=== PATIENT | female | born 1980 | race Caucasian/White ===

== ENCOUNTER 2016-12-28 07:14 | Day surgery (SDC) | payer MEDICAID ==
[2016-12-28] MEDS ORDERED: Dextrose 5%-Lactated Ringers 1,000 ML IV SCH (08:00)
[2016-12-28] MEDS ORDERED: Propofol 200 MG/20 ML SDV ONE (08:10)
[2016-12-28] MEDS ORDERED: fentaNYL 100 MCG/2 ML SDV ONE (08:10)
[2016-12-28] MEDS ORDERED: Midazolam 1 MG/ML 2 ML SDV ONE (08:10)
[2016-12-28] MEDS ORDERED: Glycopyrrolate 0.2 MG/ML 2 ML SYRINGE IVPUSH ONE (08:30)
[2016-12-28 10:58] VITALS: BP 110/72
--- NOTE | 2016-12-31 14:11 | OR ---
DATE OF PROCEDURE: 12/28/2016 PREOPERATIVE DIAGNOSIS: Weight regain status post Miguel-en-Y gastric bypass. POSTOPERATIVE DIAGNOSES: 1. Weight regain status post Miguel-en-Y gastric bypass, associated with a very large gastric pouch and gastrojejunostomy. 2. Gastrogastric fistula. OPERATIVE PROCEDURE: Upper GI endoscopy with biopsies of the gastric antrum for CLOtest. ANESTHESIA: IV sedation. INDICATION FOR PROCEDURE: This 36-year-old status post Miguel-en-Y gastric bypass in 2009. This was done in [place]. The patient initially had a good result, going from a weight of 357 pounds to 209 pounds in a year and a half postoperatively. In recent 2 to 3 years, she has had major weight regain and now has a weight up to 299 again with a BMI of 45. To try to identify if there are anatomically correctable problems with her bypass the plan will be to proceed with an upper GI endoscopy with biopsies as indicated. Potential risks including bleeding and perforation were discussed, and the patient wishes to proceed. PROCEDURE: The patient was taken to the operating room and placed in a left lateral decubitus position. IV sedation was administered, after which the upper GI endoscope was passed orally through the length of the esophagus into the gastric pouch, from there through the gastrojejunostomy as well as to the gastrogastric fistula with examination of the remainder of the stomach and proximal duodenum. At this point, there was minimal inflammation of the esophagus and EG junction area. The gastric pouch itself was somewhat reddened, but strikingly large, measuring 11 cm from the gastrojejunostomy to the esophagogastric junction. The gastrojejunostomy was also very large, estimated to be around 6 cm in diameter. Additionally, the patient had a gastrogastric fistula, which is large enough to allow the 1 cm scope into the remainder of the stomach. The remainder of the stomach had some mild redness within the antrum and the pyloric channel and the duodenum. The junction of the third and fourth portions were unremarkable. At this point, biopsies obtained from the antrum and sent for CLOtest for H. pylori. Minimal bleeding from the biopsy site was seen, and the procedure then concluded. The patient was taken to the recovery room in satisfactory condition. The patient would appear to be a good candidate for a revisional procedure. The original procedure was done laparoscopically with an antecolic Miguel limb making revision of this case fairly straightforward, most likely by a laparoscopic approach. Her insurance carrier, [employer] [facility] will be contacted with request for prior authorization. In the meantime, she will be instructed to begin her dietary visits in the event the insurance requires a six-month dietary schedule prior to the revision. Noman Sullivan MD /[id number]
== END 2016-12-28 11:15 | disposition home or self-care (01) ==
LOC: JP.SDS 07:14
PROVIDERS: ATTEND Surgery
DX: K31.6 Fistula of stomach and duodenum (principal); I10 Essential (primary) hypertension; E11.9 Type 2 diabetes mellitus without complications; F32.9 Major depressive disorder, single episode, unspecified; Z98.84 Bariatric surgery status; Z88.1 Allergy status to other antibiotic agents; Z88.2 Allergy status to sulfonamides; Z88.8 Allergy status to other drugs, medicaments and biological substances; Z91.09 Other allergy status, other than to drugs and biological substances; Z91.040 Latex allergy status
CPT/HCPCS: 43239; 87081; J2250; J2704; J3010; J7042

== ENCOUNTER 2017-04-12 17:55 | Inpatient (IN) | payer MEDICAID ==
[2017-05-09] MEDS ORDERED: cefOXitin 2 GM Vial ONE (08:08)
[2017-05-09] MEDS ORDERED: Propofol 200 MG/20 ML SDV ONE (08:23)
[2017-05-09] MEDS ORDERED: Rocuronium 50 MG/5 ML Vial ONE (08:23)
[2017-05-09] MEDS ORDERED: Succinylcholine 200 MG/10 ML MDV ONE (08:23)
[2017-05-09] MEDS ORDERED: Glycopyrrolate 0.2 MG/ML 5 ML MDV ONE (08:23)
[2017-05-09] MEDS ORDERED: Dexamethasone 4 MG/ML SDV ONE (08:23)
[2017-05-09] MEDS ORDERED: Neostigmine Methylsulfate 1 MG/ML 5 ML Syringe ONE (08:23)
[2017-05-09] MEDS ORDERED: Ondansetron 4 MG/2 ML SDV ONE (08:23)
[2017-05-09] MEDS ORDERED: Dextrose 5%-Lactated Ringers 1,000 ML IV SCH (09:15)
[2017-05-09] MEDS ORDERED: Celecoxib 200 MG Cap PO ONE (09:15)
[2017-05-09] MEDS ORDERED: Gabapentin 300 MG Cap PO ONE (09:15)
[2017-05-09] MEDS ORDERED: Acetaminophen 500 MG Tab PO ONE (09:15)
[2017-05-09] MEDS ORDERED: Scopolamine 1.5 MG Transdermal Patch TOP SCH (09:15)
[2017-05-09] MEDS ORDERED: Ketoconazole 2% Crm 30 GM Tube TOP ONE (10:00)
[2017-05-09] MEDS ORDERED: cefOXitin 2 GM in Sodium Chloride 0.9% 50 ML IV ONE (10:00)
[2017-05-09] MEDS ORDERED: Lidocaine 1% 2 ML ONE (11:00)
[2017-05-09] MEDS ORDERED: Lidocaine 2% 100 MG/5 ML Syringe IVPUSH ONE (11:00)
[2017-05-09] MEDS ORDERED: Ketamine 500 MG/5 ML MDV IV SCH (11:00)
[2017-05-09] MEDS ORDERED: Ropivacaine 60 ML, Dexamethasone 8 MG, EPINEPHrine 0.4 MG, Sodium Chloride 0.9% 17.6 ML NERVRT SCH ×4 (11:00)
[2017-05-09] MEDS ORDERED: fentaNYL 100 MCG/2 ML SDV ONE ×2 (11:46→12:37)
[2017-05-09] MEDS ORDERED: Labetalol 20 MG/4 ML Syringe ONE (12:20)
[2017-05-09] MEDS ORDERED: hydrOXYzine HCl 100 MG/2 ML SDV IM ONE (14:10)
[2017-05-09] MEDS ORDERED: diphenhydrAMINE 50 MG/ML SDV IVPUSH PRN (15:00)
[2017-05-09] MEDS ORDERED: hydrOXYzine HCl 100 MG/2 ML SDV IM PRN (15:00)
[2017-05-09] MEDS ORDERED: Labetalol 20 MG/4 ML Syringe IVPUSH PRN (15:00)
[2017-05-09] MEDS ORDERED: Ondansetron 4 MG/2 ML SDV IVPUSH PRN (15:00)
[2017-05-09] MEDS ORDERED: SCOPOLAMINE PATCH ASK TOP SCH (15:00)
[2017-05-09] MEDS: Lidocaine 0.4%/D5W 2 GM/500 ML BAG IV SCH (15:26)
[2017-05-09] MEDS: SCOPOLAMINE PATCH CHECK TOP SCH (15:28)
[2017-05-09] MEDS ORDERED: MVI, Adult with Vitamin K 10 ML, Thiamine 200 MG, Chromium/Copper/Mang/Selen/Zn 1 ML in... IV SCH ×4 (16:00)
[2017-05-09] MEDS: cefOXitin 2 GM in Sodium Chloride 0.9% 50 ML IV SCH ×2 (16:34→22:03)
[2017-05-09] MEDS: Pantoprazole 40 MG Vial IVPUSH SCH (16:35)
[2017-05-09] MEDS: Heparin Sodium 5,000 Units/ML Vial SUBCUT SCH (17:36)
[2017-05-09] MEDS: Gabapentin 300 MG Cap PO SCH ×2 (18:15→21:32)
[2017-05-09] MEDS: Acetaminophen 325 MG Tab PO SCH ×2 (18:16→21:32)
[2017-05-09] MEDS: Ketoconazole 2% Crm 30 GM Tube TOP SCH (21:34)
[2017-05-09] MEDS: Dextrose 5%-Lactated Ringers 1,000 ML IV SCH (22:06)
[2017-05-10] MEDS ORDERED: Iohexol 647 MG/ML 50 ML SDV PO STA (03:28)
[2017-05-10] MEDS: Lidocaine 0.4%/D5W 2 GM/500 ML BAG IV SCH (04:19)
[2017-05-10] MEDS: cefOXitin 2 GM in Sodium Chloride 0.9% 50 ML IV SCH (04:19)
[2017-05-10] MEDS: Acetaminophen 325 MG Tab PO SCH ×4 (04:19→21:37)
[2017-05-10] MEDS: Gabapentin 300 MG Cap PO SCH ×4 (05:49→21:38)
[2017-05-10] MEDS: Heparin Sodium 5,000 Units/ML Vial SUBCUT SCH ×2 (05:49→17:41)
[2017-05-10] MEDS: Dextrose 5%-Lactated Ringers 1,000 ML IV SCH (05:50)
[2017-05-10] MEDS: Celecoxib 200 MG Cap PO SCH (08:13)
[2017-05-10] MEDS: SCOPOLAMINE PATCH CHECK TOP SCH (08:13)
[2017-05-10] MEDS: Ketoconazole 2% Crm 30 GM Tube TOP SCH ×2 (08:15→21:36)
[2017-05-10] MEDS ORDERED: Dextrose 5%-Lactated Ringers 1,000 ML IV SCH (08:30)
--- NOTE | 2017-05-10 08:45 | CR ---
UGI wo KUB HISTORY: Gastric bypass. COMPARISON: None FINDINGS: No extravasation of contrast. No obstruction. No stenosis.
[2017-05-10] MEDS: Sertraline 50 MG Tab PO SCH (08:54)
[2017-05-10] MEDS ORDERED: MVI, Adult with Vitamin K 10 ML, Thiamine 200 MG, Chromium/Copper/Mang/Selen/Zn 1 ML in... IV SCH ×4 (16:00)
[2017-05-10] MEDS: Pantoprazole 40 MG Vial IVPUSH SCH (16:09)
[2017-05-10] MEDS ORDERED: traZODone 50 MG Tab PO SCH (21:00)
[2017-05-11] MEDS: Acetaminophen 325 MG Tab PO SCH ×2 (03:31→10:47)
[2017-05-11] MEDS: Heparin Sodium 5,000 Units/ML Vial SUBCUT SCH (05:36)
[2017-05-11] MEDS: Gabapentin 300 MG Cap PO SCH ×2 (05:36→09:09)
[2017-05-11 08:01] VITALS: BP 141/83
[2017-05-11] MEDS: Celecoxib 200 MG Cap PO SCH (08:14)
[2017-05-11] MEDS: SCOPOLAMINE PATCH CHECK TOP SCH (08:15)
[2017-05-11] MEDS ORDERED: Cyanocobalamin (Vitamin B12) 1,000 MCG/ML SDV IM ONE (09:00)
[2017-05-11] MEDS: Ketoconazole 2% Crm 30 GM Tube TOP SCH (09:07)
[2017-05-11] MEDS: Sertraline 50 MG Tab PO SCH (09:09)
--- NOTE | 2017-05-11 11:50 | HP ---
The patient has been afebrile with stable vital signs. Her upper GI x-ray looks good and we will go up to a step 2 diet today, and she is tolerating the present oral medication regimen along with the IV lidocaine. We will restart her trazodone and Zoloft today . Noman Sullivan MD /[id number]
[2017-05-11] MEDS ORDERED: Pantoprazole 40 MG Tab.CR PO SCH (16:30)
--- NOTE | 2017-05-14 11:11 | OR ---
DATE OF PROCEDURE: 05/09/2017 PREOPERATIVE DIAGNOSIS: Weight regain status post gastric bypass with enlarged gastric pouch, as well as gastrogastric fistula. POSTOPERATIVE DIAGNOSES: 1. Weight regain status post gastric bypass with enlarged gastric pouch, as well as gastrogastric fistula. 2. Segment of small bowel rendered devascularized status post takedown of adhesions adjacent to the gastrojejunostomy. OPERATIVE PROCEDURE: Diagnostic laparoscopy with: 1. Revision of Miguel-en-Y gastric bypass (53700). 2. Small bowel resection (79751). ANESTHESIA: General. INDICATION FOR PROCEDURE: This is a 37-year-old status post Miguel-en-Y gastric bypass in [place] in 2009. She had initially a good result but recently has had extensive weight regain. Recent upper endoscopy showed a large gastric pouch, gastrojejunostomy as well as gastrogastric fistula. The plan is to proceed with revision of the procedure. We will redo the upper aspect of the procedure, i.e. the gastric pouch and gastrojejunostomy, but also convert her to a more distal Miguel-en-Y anatomy, as doing the upper portion alone typically does not result much in the way of satisfactory weight loss. Potential risks of the procedure including bleeding, infection, leaks from various GI tract closures, problems with frequent loose bowel movements or diarrhea or nutritional complications related to the distalization of the Miguel limb were all reviewed, along with the remote possibility of cardiopulmonary, septic, or hemorrhagic complications leading to , and the patient wishes to proceed. DETAILS OF PROCEDURE: The patient was taken to the operating room and after general endotracheal anesthesia was induced, was placed in a lithotomy position. Bilateral subcostal transversus abdominis plane blocks under continuous ultrasound guidance were then placed using the standard formula. The abdomen was then prepped and draped. At 15 cm inferior, 5 cm left of xiphoid process, a transverse incision was made and the peritoneal cavity entered under direct vision with Optiview trocar. The peritoneal cavity was inflated to 15 mmHg pressure with CO2. Laparoscope was then reinserted. No underlying trocar insertion site injuries were seen. Following this, initially 5 additional trocars were placed across the upper and mid abdomen. During the course of the procedure, 2 additional trocars were placed to facilitate the subsequent small bowel anastomosis. At this point, the liver was retracted anteriorly. The patient had relatively few adhesions between the liver and the underlying area of the gastric bypass. This fortunately had been made in an antecolic position, making visualization of that area quite straightforward. A 32-Divehi Remigio tube was then placed per Anesthesia orally and then manipulated through the gastric pouch and from there into the Miguel limb. This then allowed dissection along the area of the gastrojejunostomy and up underneath the gastric pouch. The pouch was then divided more or less flush with the Remigio tube with the staplers being pulled up fairly snugly against the Remigio tube with firing. This was done with a combination of black loads, as well as reinforced black loads and reinforced purple loads. This continued upward to the esophagogastric junction, thus creating a markedly decreased gastric pouch. The stomach attached to this was then excised as well, which would include division of the gastrogastric fistula by definition. This was done with some additional STEFANO staple firings. At this point, the Remigio tube was removed, and that area of the revised gastric pouch and gastrojejunostomy appeared to be satisfactory. The Miguel limb was then divided just proximal to the jejunojejunostomy. As part of mobilization of this Miguel limb, a portion of that bowel became ischemic, and a roughly 10 cm segment of the small bowel was then resected. This was done with a STEFANO flanagan load and the underlying mesentery divided with Harmonic scalpel. The small bowel specimen was then delivered from the field. The Miguel limb at this point was noted to measure 60 cm. As a general rule, one should not fall below 300 cm in terms of the total alimentary limb, so the small bowel was identified at the ileocecal valve and then traced back to 140 cm. At that point what had been the distalmost Miguel limb was anastomosed to the small bowel at that level in a vyab-ke-yrug manner with 2 internal firings of the STEFANO flanagan loads and the common opening then closed transversely with the same stapler. The angles of anastomosis were reinforced with 0 Ethibond seromuscular stitch, and the underlying mesenteric defect then approximated with some 0 Ethibond sutures. At this point, no further problems were noted. Fibrin sealant was applied to both the gastric staple line, as well as the jejunojejunostomy, and the abdomen irrigated with an antibiotic-containing saline solution. The trocars were sequentially removed and the peritoneal cavity deflated. Incisions were closed with some 4-0 Vicryl skin stitch and dressing applied. No drains were placed. The patient was taken to the recovery room in satisfactory condition. Noman Sullivan MD /[id number]
--- NOTE | 2017-05-14 11:17 | DISCH ---
FINAL DIAGNOSES: 1. Recurrent morbid obesity. 2. Status post previous Miguel-en-Y gastric bypass associated with large gastric pouch and gastrojejunostomy and gastrogastric fistula. SECONDARY DIAGNOSES: 1. Osteoarthritis status post right knee arthroplasty. 2. Iron-deficiency anemia. 3. History of anxiety and depression. 4. Polycystic ovarian syndrome. 5. History of type 2 diabetes prior to previous gastric bypass. OPERATIVE PROCEDURE: 1. On 05/09/2017, laparoscopic revision of Miguel-en-Y gastric bypass, including division of the gastrogastric fistula. 2. Small-bowel resection. HOSPITAL COURSE: This is a 37-year-old status post Miguel-en-Y gastric bypass done at [place] in 2009. She initially had a good result, but then recently she had significant weight regain, presenting now with a weight of around 285 pounds. The recent workup included an upper endoscopy, which showed very large gastric pouch, gastrojejunostomy, and gastrogastric fistula. This area was corrected surgically on the date of admission and also then her small bowel divided such that the total alimentary length was 300 cm with the Miguel limb presently being 60 cm and the common limb 240 cm. Postoperatively, no major problems have been noted. A formal reanastomosis at the gastrojejunostomy was not undertaken, so we will be able to send the patient home on a step- 3 diet and then progress after first appointment. Otherwise, she will be continued on her usual medications plus Tylenol 650 p.o. q.6 hours p.r.n. pain, gabapentin 300 mg p.o. t.i.d. p.r.n. x1 month, and then she will also be continuing the Celebrex 200 mg a day. Next followup will be with Elba Medina PA-C, at [facility] on 05/20/2017.
== END 2017-05-11 11:17 | disposition home or self-care (01) | DRG 620 ==
LOC: JP.SDSSCHI 05-09 08:48 → JP.SDS 05-09 08:48 → EDSTATUS 05-09 09:45 → JP.2SS 05-09 13:15
PROVIDERS: ADMIT Surgery; ATTEND Surgery
PROC: 0D1A4ZA Bypass Jejunum to Jejunum, Percutaneous Endoscopic Approach (ICD-10-PCS; principal; 2017-05-09)
PROC: 0DB84ZX Excision of Small Intestine, Percutaneous Endoscopic Approach, Diagnostic (ICD-10-PCS; principal; 2017-05-09)
PROC: 0DB64ZX Excision of Stomach, Percutaneous Endoscopic Approach, Diagnostic (ICD-10-PCS; principal; 2017-05-09)
PROC: 0DB83ZZ Excision of Small Intestine, Percutaneous Approach (ICD-10-PCS; principal; 2017-05-09)
PROC: 3E0T3BZ Introduction of Anesthetic Agent into Peripheral Nerves and Plexi, Percutaneous Approach (ICD-10-PCS; principal; 2017-05-09)
PROC: 0DB63ZZ Excision of Stomach, Percutaneous Approach (ICD-10-PCS; principal; 2017-05-09)
DX: E66.01 Morbid (severe) obesity due to excess calories (principal); K31.6 Fistula of stomach and duodenum; R63.5 Abnormal weight gain; Z68.41 Body mass index [BMI] 40.0-44.9, adult; F41.9 Anxiety disorder, unspecified; F32.9 Major depressive disorder, single episode, unspecified; K21.9 Gastro-esophageal reflux disease without esophagitis; Z98.84 Bariatric surgery status; Z98.0 Intestinal bypass and anastomosis status; D50.9 Iron deficiency anemia, unspecified; E28.2 Polycystic ovarian syndrome; Z86.32 Personal history of gestational diabetes; Z86.39 Personal history of other endocrine, nutritional and metabolic disease; M19.90 Unspecified osteoarthritis, unspecified site; Z88.1 Allergy status to other antibiotic agents; Z88.5 Allergy status to narcotic agent; Z88.2 Allergy status to sulfonamides; Z88.8 Allergy status to other drugs, medicaments and biological substances; Z91.048 Other nonmedicinal substance allergy status
CPT/HCPCS: 36415; 74240; 74240-26; 80053; 82728; 82962; 83036; 83735; 84100; 85027; 86850; 86900; 86901; 88307; 88313; 94762; A9270-GY; C9113; J0171; J0330; J0694; J1100; J1644; J2001; J2405; J2704; J2710; J2795; J3010; J3410; J3411; J3420; J7030; J7040; J7042; J7050; Q9967

== ENCOUNTER 2018-09-16 07:23 | Day surgery (SDC) | payer BC, MEDICAID ==
[2018-09-16] MEDS ORDERED: Lactated Ringers 1,000 ML IV SCH (08:00)
[2018-09-16] MEDS ORDERED: Cyanocobalamin (Vitamin B12) 1,000 MCG/ML SDV IM ONE (08:00)
[2018-09-16] MEDS ORDERED: Glycopyrrolate 0.2 MG/ML 2 ML SDV IVPUSH ONE (08:30)
[2018-09-16] MEDS ORDERED: Midazolam 1 MG/ML 2 ML SDV ONE (08:37)
[2018-09-16] MEDS ORDERED: fentaNYL 100 MCG/2 ML SDV ONE (08:37)
[2018-09-16] MEDS ORDERED: Propofol 200 MG/20 ML SDV ONE (08:38)
[2018-09-16] MEDS ORDERED: MVI, Adult with Vitamin K 10 ML, Thiamine 200 MG, Chromium/Copper/Mang/Zinc 1 ML in Lac... IV ONE ×4 (09:30)
[2018-09-16] MEDS ORDERED: Pantoprazole 40 MG Vial IVPUSH ONE (09:56)
[2018-09-16 11:21] VITALS: BP 110/77
--- NOTE | 2018-09-23 13:35 | OR ---
DATE OF PROCEDURE: 09/16/2018 PREOPERATIVE DIAGNOSES: Epigastric pain and intermittent emesis, status post Miguel-en-Y gastric bypass. POSTOPERATIVE DIAGNOSES: Epigastric pain and intermittent emesis with upper GI endoscopy showing no stricture and minimal pouch gastritis. OPERATIVE PROCEDURE: Upper GI endoscopy with biopsies of the gastric pouch for CLOtest. ANESTHESIA: IV sedation. INDICATION FOR PROCEDURE: This is a 38-year-old status post conversion of a lap band status to Miguel-en-Y gastric bypass on 05/09/2017. She previously had been on Protonix for epigastric pain and probable marginal ulcer, presently is not on any antisecretory medications. She presents with the above symptoms and the plan is to proceed with upper GI endoscopy with biopsies and dilation as indicated. Potential risks of the procedure including bleeding and perforation were discussed, and the patient wishes to proceed. DETAILS OF PROCEDURE: The patient was taken to the operating room and placed in a left lateral decubitus position. IV sedation was administered, after which the upper GI endoscope was passed orally through the length of the esophagus and into the gastric pouch and from there through the gastrojejunostomy roughly 20 cm into the Miguel limb. The findings include normal hypopharynx, larynx, upper esophageal sphincter, and esophageal body. At the EG junction, minimal inflammation was noted as well. Within the pouch, there was perhaps some very mild edema of the mucosa. There was no stricturing or marginal ulcer at the gastrojejunostomy and the remainder of the Miguel limb was unremarkable. At this point, biopsies were obtained from the gastric pouch, sent for CLOtest for H. pylori. Minimal bleeding from the biopsy sites was seen and the procedure was then concluded. Plan will be to begin the patient on Protonix 40 mg IV to begin p.r.n. and then 40 mg daily. The patient may be symptomatic from some acid production within the gastric pouch more than might be visible on the endoscopy. The patient may also be having some problems with esophageal spasm and she will be given Levsin 0.125 mg sublingual q.6 hours p.r.n. and follow up with MAXINE Gonzalez in [place] in 1 month. Some feeding tips in terms of chewing her food up well and such. Noman Sullivan MD /[id number]
== END 2018-09-16 11:31 | disposition home or self-care (01) ==
LOC: JP.SDS 07:23
PROVIDERS: ATTEND Surgery
DX: R10.13 Epigastric pain (principal); R11.10 Vomiting, unspecified; Z98.84 Bariatric surgery status
CPT/HCPCS: 43239; 87081; C9113; J2250; J2704; J3010; J3411; J3420; J3490; J7120

== ENCOUNTER 2023-02-07 10:46 | Inpatient (IN) | payer MEDICAID ==
[~2023-02-07 10:46] MED LIST: Bupivacaine 0.5% 50 ML MDV ONE; Lidocaine 1% with EPINEPHrine 1:100,000 50 ML MDV ONE; Meropenem 500 MG SDV ONE
[2023-02-07] MEDS ORDERED: Propofol 200 MG/20 ML SDV ONE (11:17)
[2023-02-07] MEDS ORDERED: Ondansetron 4 MG/2 ML SDV ONE (11:17)
[2023-02-07] MEDS ORDERED: Dexamethasone 4 MG/ML SDV ONE (11:17)
[2023-02-07] MEDS ORDERED: fentaNYL 250 MCG/5 ML SDV ONE ×2 (11:17→12:45)
[2023-02-07] MEDS ORDERED: Succinylcholine 200 MG/10 ML MDV ONE (11:17)
[2023-02-07] MEDS ORDERED: Rocuronium 50 MG/5 ML Vial ONE (11:17)
[2023-02-07] MEDS ORDERED: Neostigmine Methylsulfate 1 MG/ML 5 ML Syringe ONE (11:17)
[2023-02-07] MEDS ORDERED: Glycopyrrolate 0.2 MG/ML 5 ML MDV ONE (11:17)
[2023-02-07] MEDS ORDERED: Scopolamine 1.5 MG Transdermal Patch TOP SCH (11:30)
[2023-02-07] MEDS ORDERED: cefOXitin 2 GM in Sodium Chloride 0.9% 50 ML IV ONE (12:15)
[2023-02-07] MEDS ORDERED: Albuterol/Ipratropium 3.0-0.5 MG/3 ML Neb Soln NEB ONE (12:30)
[2023-02-07] MEDS ORDERED: Ketamine 19 MG in Sodium Chloride 0.9% 19.81 ML IV SCH (12:30)
[2023-02-07] MEDS ORDERED: Ketamine 500 MG/5 ML MDV IV SCH (12:30)
[2023-02-07] MEDS: Dextrose 5%-Lactated Ringers 1,000 ML IV SCH ×2 (12:31→15:49)
[2023-02-07] MEDS ORDERED: Ondansetron 4 MG/2 ML SDV IVPUSH PRN ×2 (12:53→17:00)
[2023-02-07] MEDS ORDERED: Naloxone 0.4 MG/ML SDV IVPUSH PRN (12:53)
[2023-02-07] MEDS ORDERED: HYDROmorphone/Normal Saline 6 MG/30 ML PCA Vial IV PRN (12:53)
[2023-02-07] MEDS ORDERED: diphenhydrAMINE 50 MG/ML SDV IVPUSH PRN ×2 (12:53→17:00)
[2023-02-07] MEDS ORDERED: diphenhydrAMINE 25 MG Cap PO PRN (12:53)
[2023-02-07] MEDS ORDERED: Cyclobenzaprine 10 MG Tab PO PRN (16:47)
[2023-02-07] MEDS ORDERED: Naloxone 0.4 MG/ML SDV IV PRN (17:00)
[2023-02-07] MEDS ORDERED: hydrOXYzine HCl 50 MG/ML SDV IM PRN (17:00)
[2023-02-07] MEDS ORDERED: Labetalol 20 MG/4 ML Syringe IVPUSH PRN (17:00)
[2023-02-07] MEDS ORDERED: Metoclopramide 10 MG/2 ML SDV IVPUSH PRN (17:00)
[2023-02-07] MEDS ORDERED: Acetaminophen 500 MG Tab PO PRN (17:00)
[2023-02-07] MEDS: cefOXitin 2 GM in Sodium Chloride 0.9% 50 ML IV SCH ×2 (17:13→23:02)
[2023-02-07] MEDS: MVI, Adult with Vitamin K 10 ML, Thiamine 200 MG, Zinc/Copper/Manganese/Selenium 1 ML i... IV SCH ×4 (17:13)
[2023-02-07] MEDS ORDERED: Pantoprazole 40 MG Vial IVPUSH SCH (18:00)
[2023-02-07] MEDS: Acetaminophen 500 MG Tab PO SCH (19:54)
[2023-02-07] MEDS: traZODone 50 MG Tab PO SCH (20:59)
[2023-02-07] MEDS: Heparin Sodium 5,000 Units/ML Vial SUBCUT SCH (21:00)
[2023-02-07] MEDS: Montelukast 10 MG Tab PO SCH (21:00)
[2023-02-07] MEDS: Albuterol/Ipratropium 3.0-0.5 MG/3 ML Neb Soln INH SCH (21:01)
[2023-02-07] MEDS: Budesonide 0.5 MG/2 ML Neb Susp INH SCH (21:01)
[2023-02-08] MEDS: Dextrose 5%-Lactated Ringers 1,000 ML IV SCH ×2 (00:02→06:18)
[2023-02-08] MEDS ORDERED: Iopamidol 612 MG/ML 50 ML SDV PO ONE (03:19)
[2023-02-08] MEDS: Acetaminophen 500 MG Tab PO SCH ×3 (03:21→20:29)
[2023-02-08] MEDS: cefOXitin 2 GM in Sodium Chloride 0.9% 50 ML IV SCH ×4 (05:18→23:17)
[2023-02-08] MEDS: Formoterol/Mometasone 100-5 MCG 8.8 GM Inhaler IH SCH ×2 (07:06→20:30)
[2023-02-08] MEDS: Albuterol/Ipratropium 3.0-0.5 MG/3 ML Neb Soln INH SCH ×4 (07:06→20:29)
[2023-02-08] MEDS: Budesonide 0.5 MG/2 ML Neb Susp INH SCH ×3 (07:06→20:29)
[2023-02-08] MEDS ORDERED: Ondansetron 4 MG Tab.DIS PO PRN (08:04)
[2023-02-08] MEDS ORDERED: Dextrose 5%-Lactated Ringers 1,000 ML IV SCH (08:15)
[2023-02-08] MEDS: SCOPOLAMINE PATCH CHECK TOP SCH (09:33)
[2023-02-08] MEDS: Heparin Sodium 5,000 Units/ML Vial SUBCUT SCH ×2 (09:34→20:29)
[2023-02-08] MEDS: Celecoxib 200 MG Cap PO SCH ×2 (09:35→20:30)
[2023-02-08] MEDS: Venlafaxine 75 MG Cap.ER PO SCH (09:35)
[2023-02-08] MEDS: Vitamin A 100,000 Units/2 ML SDV IM SCH (09:43)
[2023-02-08] MEDS: Pantoprazole 40 MG Tab.CR PO SCH (16:34)
[2023-02-08] MEDS: MVI, Adult with Vitamin K 10 ML, Thiamine 200 MG, Zinc/Copper/Manganese/Selenium 1 ML i... IV SCH ×4 (16:43)
[2023-02-08] MEDS: traZODone 50 MG Tab PO SCH (20:30)
[2023-02-08] MEDS: Montelukast 10 MG Tab PO SCH (20:31)
[2023-02-09] MEDS: Acetaminophen 500 MG Tab PO SCH ×3 (03:08→20:15)
[2023-02-09] MEDS: cefOXitin 2 GM in Sodium Chloride 0.9% 50 ML IV SCH ×2 (05:32→12:24)
[2023-02-09] MEDS: Albuterol/Ipratropium 3.0-0.5 MG/3 ML Neb Soln INH SCH ×4 (07:35→20:07)
[2023-02-09] MEDS: Formoterol/Mometasone 100-5 MCG 8.8 GM Inhaler IH SCH ×2 (07:35→20:01)
[2023-02-09] MEDS: Budesonide 0.5 MG/2 ML Neb Susp INH SCH ×3 (07:36→20:07)
[2023-02-09] MEDS: Heparin Sodium 5,000 Units/ML Vial SUBCUT SCH ×2 (08:16→20:01)
[2023-02-09] MEDS: Celecoxib 200 MG Cap PO SCH ×2 (08:16→20:01)
[2023-02-09] MEDS: Venlafaxine 75 MG Cap.ER PO SCH (08:17)
[2023-02-09] MEDS: SCOPOLAMINE PATCH CHECK TOP SCH (08:18)
[2023-02-09] MEDS ORDERED: Sodium Chloride 0.9% 10 ML Syringe IV PRN (08:25)
[2023-02-09] MEDS ORDERED: Cyanocobalamin (Vitamin B12) 1,000 MCG/ML SDV IM ONE (09:00)
[2023-02-09] MEDS: Vitamin A 100,000 Units/2 ML SDV IM SCH (10:41)
[2023-02-09] MEDS: Docusate Sodium 100 MG Cap PO SCH ×2 (10:42→20:01)
[2023-02-09] MEDS: Bisacodyl 5 MG Tab PO SCH ×2 (10:42→20:02)
[2023-02-09] MEDS: oxyCODONE 5 MG Tab PO PRN (15:16)
[2023-02-09] MEDS: Pantoprazole 40 MG Tab.CR PO SCH (16:05)
[2023-02-09] MEDS: Montelukast 10 MG Tab PO SCH (20:02)
[2023-02-09] MEDS: traZODone 50 MG Tab PO SCH (20:02)
[2023-02-10] MEDS: Acetaminophen 500 MG Tab PO SCH ×3 (03:37→20:29)
[2023-02-10] MEDS: Budesonide 0.5 MG/2 ML Neb Susp INH SCH ×3 (07:37→20:31)
[2023-02-10] MEDS: Formoterol/Mometasone 100-5 MCG 8.8 GM Inhaler IH SCH ×2 (07:37→20:30)
[2023-02-10] MEDS: Albuterol/Ipratropium 3.0-0.5 MG/3 ML Neb Soln INH SCH ×4 (07:37→20:30)
[2023-02-10] MEDS: Celecoxib 200 MG Cap PO SCH ×2 (08:35→20:30)
[2023-02-10] MEDS: Docusate Sodium 100 MG Cap PO SCH ×2 (08:35→20:30)
[2023-02-10] MEDS: Venlafaxine 75 MG Cap.ER PO SCH (08:35)
[2023-02-10] MEDS: Bisacodyl 5 MG Tab PO SCH ×2 (08:35→20:30)
[2023-02-10] MEDS ORDERED: Magnesium Hydroxide 400 MG/5 ML Susp 30 ML Cup PO PRN (08:36)
[2023-02-10] MEDS: Heparin Sodium 5,000 Units/ML Vial SUBCUT SCH ×2 (08:37→20:29)
[2023-02-10] MEDS: Vitamin A 100,000 Units/2 ML SDV IM SCH (11:50)
[2023-02-10] MEDS: Pantoprazole 40 MG Tab.CR PO SCH (17:25)
[2023-02-10] MEDS: traZODone 50 MG Tab PO SCH (20:31)
[2023-02-10] MEDS: Montelukast 10 MG Tab PO SCH (20:31)
[2023-02-11] MEDS: Acetaminophen 500 MG Tab PO SCH (03:37)
[2023-02-11] MEDS: Budesonide 0.5 MG/2 ML Neb Susp INH SCH (07:05)
[2023-02-11] MEDS: Formoterol/Mometasone 100-5 MCG 8.8 GM Inhaler IH SCH (07:05)
[2023-02-11] MEDS: Albuterol/Ipratropium 3.0-0.5 MG/3 ML Neb Soln INH SCH (07:05)
[2023-02-11] MEDS: Heparin Sodium 5,000 Units/ML Vial SUBCUT SCH (08:12)
[2023-02-11] MEDS: Vitamin A 100,000 Units/2 ML SDV IM SCH (08:12)
[2023-02-11] MEDS: Docusate Sodium 100 MG Cap PO SCH (08:13)
[2023-02-11] MEDS: Bisacodyl 5 MG Tab PO SCH (08:13)
[2023-02-11] MEDS: Celecoxib 200 MG Cap PO SCH (08:13)
[2023-02-11] MEDS: Venlafaxine 75 MG Cap.ER PO SCH (08:14)
[2023-02-11 08:21] VITALS: BP 116/86; PULSE 83
[2023-02-11] MEDS: oxyCODONE 5 MG Tab PO PRN (09:52)
== END 2023-02-11 10:10 | disposition home or self-care (01) | DRG 330 ==
LOC: JP.SDS 10:46 → JP.MS 16:40
PROVIDERS: ADMIT Surgery; ATTEND Surgery
PROC: 3E0M05Z Introduction of Adhesion Barrier into Peritoneal Cavity, Open Approach (ICD-10-PCS; principal; 2023-02-07)
PROC: 0DT80ZZ Resection of Small Intestine, Open Approach (ICD-10-PCS; principal; 2023-02-07)
PROC: 0D1N0ZP Bypass Sigmoid Colon to Rectum, Open Approach (ICD-10-PCS; principal; 2023-02-07)
DX: K56.600 Partial intestinal obstruction, unspecified as to cause (principal); K90.9 Intestinal malabsorption, unspecified; K56.2 Volvulus; G47.00 Insomnia, unspecified; E78.5 Hyperlipidemia, unspecified; F39 Unspecified mood [affective] disorder; G43.909 Migraine, unspecified, not intractable, without status migrainosus; G89.29 Other chronic pain; F90.9 Attention-deficit hyperactivity disorder, unspecified type; F41.9 Anxiety disorder, unspecified; E66.9 Obesity, unspecified; Z68.23 Body mass index [BMI] 23.0-23.9, adult; Z88.8 Allergy status to other drugs, medicaments and biological substances; Z91.040 Latex allergy status; Z90.49 Acquired absence of other specified parts of digestive tract; Z98.84 Bariatric surgery status; Z98.890 Other specified postprocedural states
CPT/HCPCS: 74240; 88307; 94640; A9270-GY; C9113; J0131; J0171; J0330; J0694; J1100; J1170; J1644; J2020; J2185; J2405; J2704; J2710; J2795; J3010; J3411; J3420; J3490; J7121; J7620; Q9967

== ENCOUNTER 2025-01-10 20:18 | Emergency (ER) | payer MEDICAID ==
[2025-01-10 20:31] VITALS: BP 141/92; PULSE 84
[2025-01-10] MEDS ORDERED: Sodium Chloride 0.9% 10 ML Syringe FLUSH PRN (21:21)
[2025-01-10 21:35] LABS: HEMATOCRIT 39.3 % (34.3-46.0); HEMOGLOBIN 12.5 g/dL (11.2-15.5); MEAN CORPUSCULAR HGB CONC 31.8 g/dL (31.6-35.5); MEAN CORPUSCULAR VOLUME 78.4 fL (81.4-99.0); RED BLOOD CELL COUNT 5.01 M/uL (3.77-5.24); WHITE BLOOD CELL COUNT,WBC 9.2 K/uL (3.2-11.0)
[2025-01-10] MEDS: Sodium Chloride 0.9% 10 ML Syringe FLUSH ONE (21:35)
[2025-01-10 21:50] LABS: ANION GAP 13.3 mmol/L (5.0-14.0); CALCIUM 9.7 mg/dL (8.5-10.1); CREATININE 0.7 mg/dL (0.6-1.0); EST CRCL DRUG DOSING (CG) 106.06 mL/min; POTASSIUM,K 3.9 mmol/L (3.6-5.2)
[2025-01-10] MEDS: Sodium Chloride 0.9% 80 ML IV SCH (21:51)
[2025-01-10] MEDS: Iopamidol 612 MG/ML 100 ML Bottle IV PRN (21:51)
== END 2025-01-10 22:53 | disposition home or self-care (01) ==
LOC: JP.ED 20:18
DX: K46.9 Unspecified abdominal hernia without obstruction or gangrene (principal); Z90.49 Acquired absence of other specified parts of digestive tract; Z90.710 Acquired absence of both cervix and uterus; Z88.2 Allergy status to sulfonamides; Z88.1 Allergy status to other antibiotic agents; Z88.8 Allergy status to other drugs, medicaments and biological substances; Z91.040 Latex allergy status; Z91.048 Other nonmedicinal substance allergy status
CPT/HCPCS: 36415; 74177; 80048; 85027; 99284; Q9967